=== PATIENT | male | born 1950 | race Caucasian/White ===

== ENCOUNTER 2021-04-01 14:00 | Emergency (ER) | payer OTHER ==
[~2021-04-01] VITALS: Ht 167.6 cm; Wt 63.5 kg
--- NOTE | 2021-04-01 17:45 | NUR ---
PT WAS EVALUATED BY DR LEON. PT WAS D/C'd TO HOME. D/C INSTRUCTIONS GIVEN TO THE PT BY DR LEON.
[2021-04-01 17:47] VITALS: BP 138/85
== END 2021-04-01 18:45 | disposition home or self-care (01) ==
LOC: ER 14:38
DX: M25.572 Pain in left ankle and joints of left foot (principal); Z87.81 Personal history of (healed) traumatic fracture; Z91.81 History of falling
CPT/HCPCS: 73610; A4663